=== PATIENT | male | born 1955 | race Caucasian/White ===

== ENCOUNTER 2021-05-04 19:44 | Emergency (ER) | payer MEDICARE, SELFPAY ==
--- NOTE | ~2021-05-04 | XR_ITS ---
EXAMINATION: XR finger 2nd RT min 2V DATE: 05/04/2021 22:10 INDICATION: Right hand second digit laceration. TECHNIQUE: 3 views of right hand second digit were obtained. COMPARISON: None. FINDINGS: Bone alignment is normal. No fracture. There is mild osteoarthritis of second distal interp halangeal joint. No radiopaque foreign body. IMPRESSION: 1. 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 Reviewed, dictated and finalized at location A. ITY BILL COLLECTION CLERK
[2021-05-04 20:52] VITALS: BP 169/57; PULSE 60; RESP 18; TEMP 36.2; O2SAT 98
[2021-05-04] MEDS: LIDOCAINE HCL 2% PF INJ 5 ML VIAL 1.5 ML INFILTRATE (21:36)
[2021-05-04] MEDS: ACETAMINOPHEN 325 MG TABLET 650 MG PO (21:36)
[2021-05-04] MEDS: TETANUS,DIPHTHERIA,AC PERTUSSIS ADULT 0.5 ML (ADACEL) IM (21:56)
[2021-05-04] MEDS: NEOMYCIN/POLYMYXIN/BACITRACIN OINTMENT PACKET 1 PACKET (21:58)
--- NOTE | 2021-05-04 21:58 | ED.WOUNDLAC ---
HPI - Wound/Laceration General Chief Complaint: Wound/Laceration Stated Complaint: cut finger w/sicer Time Seen by Provider: 05/04/21 19:46 Source: patient and RN notes reviewed Mode of arrival: ambulatory Limitations: no limitations History of Present Illness Onset (ago): hour(s) (1) Extremity Location: Right: wrist Treatments prior to arrival: bandage Related Data Home Medications Medication Instructions Recorded Confirmed albuterol sulfate 2.5 mg CONTINUOUS NEBULIZATION BID 05/04/21 05/04/21 atorvastatin 80 mg PO DAILY 05/04/21 05/04/21 fenofibric acid (choline) 135 mg PO BID 05/04/21 05/04/21 gabapentin 300 mg PO DAILY 05/04/21 05/04/21 metoprolol tartrate 25 mg PO DAILY 05/04/21 05/04/21 nitroglycerin 0.4 mg SUBLINGUAL PRN PRN 05/04/21 05/04/21 ropinirole 1 mg PO BID 05/04/21 05/04/21 sertraline 100 mg PO DAILY 05/04/21 05/04/21 tramadol 50 mg PO HS 05/04/21 05/04/21 trazodone 100 mg PO HS 05/04/21 05/04/21 Allergies Allergy/AdvReac Type Severity Reaction Status Date / Time No Known Allergies Allergy Verified 05/04/21 20:49 Review of Systems Review of Systems: All systems reviewed & are unremarkable except as noted in HPI and below Musculoskeletal: Comments: right index finger laceration PMFSH Past Medical History Medical History Finger laceration Exam Const: General: no acute distress and alert Nutritional Appearance: well nourished Orientation/consciousness: patient oriented x3 Limitations: no limitations HENMT: Head: normal to inspection and laceration Ears: external ears normal and TM's normal bilaterally General nose exam: Normal external nose present and Normal nares present Mouth: Yes moist mucous membranes Eyes: Conjunctivae: conjunctivae normal Pupils: Equal, round and reactive pupils present EOM: EOMs intact bilaterally Neck: Neck: normal visual inspection Chest: Chest palpation & inspection: normal inspection of the chest Resp: Effort & Inspection: normal respiratory effort Auscultation: clear to auscultation bilaterally Cardio: Rate: regular rate Rhythm: regular rhythm GI: GI Palp: Yes Soft to palpation and No Tenderness to palpation present (GI) Back/Spine/Pelvis: Back: no CVA tenderness Skin: General skin exam: normal color Neuro: General: patient oriented x3, moves all extremities, no meningeal signs, no focal motor deficits and CN's II-XI intact bilaterally Extrem: General: normal to inspection and no pedal edema Other: 3 cm linear superficial laceration of lateral right index finger Psych: Mental Status: mental status grossly normal Affect: normal affect Attitude: cooperative Thought content: Yes Normal thought content present Course Course Emergency Course: Finger laceration was repaired. Reevaluation(s) Date: 05/04/21 Vital Signs Vital signs: Vital Signs Temperature 36.2 C L 05/04/21 20:52 Pulse Rate 60 05/04/21 20:52 Respiratory Rate 18 05/04/21 20:52 Blood Pressure 169/57 H 05/04/21 20:52 Pulse Oximetry 98 05/04/21 20:52 Temperature 36.2 C L 05/04/21 20:52 Pulse Rate 60 05/04/21 20:52 Respiratory Rate 18 05/04/21 20:52 Blood Pressure 169/57 H 05/04/21 20:52 Pulse Oximetry 98 05/04/21 20:52 MDM - Wound/Laceration Differential Diagnosis Differential diagnosis: Likely laceration Medical Records Attestation: I reviewed the patient's medical records. Imaging Data My impression: negative right index finger. Radiologist's impression: See the report. Critical Care Time Critical Care Time Critical Care Time: No Total Critical Care Time: 0 Discharge Plan Discharge Clinical Impression: Laceration Patient Disposition: Home, Self-Care Condition: Stable Instructions: Antibiotic Form, Care For Your Stitches (ED), Laceration (ED) Additional Instructions: Home. May RTC prn. PMD in 1-2 days. Rx below. Prescriptions: New amoxicillin 875 mg
[2021-05-04 22:26] VITALS: BP 140/75; PULSE 65; RESP 18; TEMP 36.6; O2SAT 99
== END 2021-05-04 22:32 | disposition home or self-care (01) ==
PROVIDERS: Emergency Provider Emergency Medicine; PCP Physician Assistant
DX: S61.210A Laceration without foreign body of right index finger without damage to nail, initial encounter (principal); W45.8XXA Other foreign body or object entering through skin, initial encounter
CPT/HCPCS: 12002; 73140; 90471; 90715; 99283; A9270

== ENCOUNTER 2023-06-12 22:18 | Emergency (ER) | payer MEDICARE, SELFPAY ==
[2023-06-12 22:21] VITALS: BP 182/64; PULSE 60; RESP 20; TEMP 36.7; O2SAT 97
[2023-06-12] MEDS: ACYCLOVIR 200 MG CAPSULE 400 MG PO ×2 (22:32)
[2023-06-12] MEDS: KETOROLAC 30 MG/ML VIAL (*BKC) IM (22:33)
--- NOTE | 2023-06-12 22:43 | ED.SKABFB ---
HPI - Skin/Abscess/Foreign Bdy General Chief complaint: Skin/Abscess/Foreign Body Stated complaint: Rash on upper R chest Time Seen by Provider: 06/12/23 22:22 Source: patient Mode of arrival: ambulatory Limitations: no limitations History of Present Illness HPI narrative: this is 68-year-old male that presents with a rash vesicular his pain for with on an erythematous base with no fever chills no shortness of breath no nausea or vomiting no abdominal pain. complaint: rash Onset (ago): day(s) Severity: moderate Quality: burning Related Data Home Medications Medication Instructions Recorded Confirmed albuterol sulfate 2.5 mg/0.5 mL 2.5 mg continuous nebulization BID 05/04/21 05/04/21 solution for nebulization atorvastatin 80 mg tablet 80 mg PO DAILY 05/04/21 05/04/21 fenofibric acid (choline) 135 mg 135 mg PO BID 05/04/21 05/04/21 capsule,delayed release gabapentin 300 mg capsule 300 mg PO DAILY 05/04/21 05/04/21 metoprolol tartrate 25 mg tablet 25 mg PO DAILY 05/04/21 05/04/21 nitroglycerin 0.4 mg sublingual 0.4 mg sublingual PRN PRN Chest 05/04/21 05/04/21 tablet Pain ropinirole 1 mg tablet 1 mg PO BID 05/04/21 05/04/21 sertraline 100 mg tablet 100 mg PO DAILY 05/04/21 05/04/21 tramadol 50 mg tablet 50 mg PO HS 05/04/21 05/04/21 trazodone 100 mg tablet 100 mg PO HS 05/04/21 05/04/21 Allergies Allergy/AdvReac Type Severity Reaction Status Date / Time No Known Allergies Allergy Verified 05/04/21 20:49 Review of Systems Review of Systems: All systems reviewed & are unremarkable except as noted in HPI and below PMFSH Past Medical History Medical History Finger laceration Exam Const: General: healthy appearing and no acute distress Limitations: no limitations HENMT: Head: normal to inspection Chest: Chest palpation & inspection: normal inspection of the chest and tenderness Other: Rash vesicles on erythematous base 0 patch on the right upper chest area Resp: Effort & Inspection: normal respiratory effort Auscultation: clear to auscultation bilaterally GI: Auscultation: normal bowel sounds Skin: Wounds: wounds noted Course Course Emergency Course: patient received a p.o. dose of 800mg acyclovir and 30mg IM of Toradol. Vital Signs Vital signs: Vital Signs Temperature 36.7 C 06/12/23 22:21 Pulse Rate 60 06/12/23 22:21 Respiratory Rate 20 06/12/23 22:21 Blood Pressure 182/64 H 06/12/23 22:21 Pulse Oximetry 97 06/12/23 22:21 Oxygen Delivery Room Air 06/12/23 22:21 Temperature 36.7 C 06/12/23 22:21 Pulse Rate 60 06/12/23 22:21 Respiratory Rate 20 06/12/23 22:21 Blood Pressure 182/64 H 06/12/23 22:21 Pulse Oximetry 97 06/12/23 22:21 Oxygen Delivery Room Air 06/12/23 22:21 Critical Care Time Critical Care Time Critical Care Time: No Discharge Plan Discharge Clinical Impression: Herpes zoster Patient Disposition: Home, Self-Care Condition: Stable Instructions: Antibiotic Form, Shingles (ED) Additional Instructions: Take medicine as prescribed and follow up with primary if symptoms persist or worsen. Can take Tylenol or Motrin along with prescribed medication for shingles Prescriptions: New acyclovir 800 mg tablet 800 mg PO QID 7 Days Qty: 28 0RF No Action atorvastatin 80 mg tablet 80 mg PO DAILY ropinirole 1 mg tablet 1 mg PO BID sertraline 100 mg tablet 100 mg PO DAILY tramadol 50 mg tablet 50 mg PO HS trazodone 100 mg tablet 100 mg PO HS nitroglycerin 0.4 mg tablet, sublingual 0.4 mg sublingual PRN PRN (Reason: Chest Pain) gabapentin 300 mg capsule 300 mg PO DAILY metoprolol tartrate 25 mg tablet 25 mg PO DAILY albuterol sulfate 2.5 mg/0.5 mL solution for nebulization 2.5 mg continuous nebulization BID fenofibric acid (choline) 135 mg capsule,delayed release(DR/EC) 1
[2023-06-12 22:54] VITALS: BP 140/74; PULSE 89; RESP 18; TEMP 36.6; O2SAT 99
== END 2023-06-12 22:54 | disposition home or self-care (01) ==
PROVIDERS: Emergency Provider Emergency Medicine; PCP Family Medicine
DX: B02.9 Zoster without complications (principal)
CPT/HCPCS: 96372; 99283; A9270; J1885

== ENCOUNTER 2025-02-10 19:45 | Emergency (ER) | payer MEDICARE, MEDICAID, SELFPAY ==
[2025-02-10 19:46] VITALS: BP 175/89; PULSE 73; RESP 16; TEMP 36; O2SAT 95
--- OUTSIDE RECORDS SUMMARY | 2025-02-10 19:46 | XMS_ITS | Clinical Summary ---
Author Organization [facility] Address [address] [place] [address] Care Team Providers Care Emergency Detail Driver Name Role Phone Jt Romeo Primary Care Provider [phone] Allergies No known active allergies Medications aspirin 81 MG tablet Take 81 mg by mouth daily. 7 Active nitroglycerin 0.4 MG SL tablet 0.4 mg. 1 Active Chlorphen-Pyril -Phenyleph (TRIPLEX AD OR) Take 1 tablet by mouth daily. 2 Active atorvastatin (LIPITOR) 40 MG tablet Take 2 tablets by mouth daily. 1 Active fluticasone-tushar meterol (ADVAIR DISKUS) 500-50 MCG/DOSE inhaler 1 puff 2 (two) times daily. 8 Active primidone 50 MG tablet Take 25 mg by mouth daily. 8 Active sertraline 100 MG tablet Take 100 mg by mouth daily. 8 Active trazodone 100 MG tablet Take 10 mg by mouth daily. 8 Active ferrous sulfate, 65 mg elemental, 325 (65 Fe) MG tablet Take 1 tablet by mouth daily. Active albuterol (5 MG/ML) 0.5% nebulizer solution Take 2.5 mg by nebulization 4 (four) times daily. Active ipratropium-alb uterol 0.5-2.5 (3) MG/3ML Solution Take by nebulization every 6 (six) hours as needed. Active tiotropium [address] 18 mcg into inhaler and inhale daily. Active Family History Medical History Relation Comments Heart Disease Father Relation Status Comments Father Social History Tobacco Use Types Packs/Day Years Used Date Smoking Tobacco: Smoker, Current Status Unknown Smokeless Tobacco: Never Sex and Gender Information Value Date Recorded Sex Assigned at Not on file Legal Sex Male 9:59 PM CDT Gender Identity Not on file Sexual Orientation Not on file Last Filed Vital Signs Vital Sign Reading Time Taken Comments Blood Pressure 158/77 02/21/2018 11:44 AM BOOTH CLEANER Pulse 51 02/21/2018 11:44 AM BOOTH CLEANER Temperature 36.5 C (97.7 F) 02/21/2018 11:44 AM BOOTH CLEANER Respiratory Rate 16 12/23/2011 4:09 PM CDT Oxygen Saturation 97% 02/21/2018 11:44 AM BOOTH CLEANER Inhaled Oxygen Concentration - - Weight 79.8 kg (176 lb) 02/21/2018 11:44 AM BOOTH CLEANER Height 182.9 cm (6') 02/21/2018 11:44 AM BOOTH CLEANER Body Mass Index 23.87 02/21/2018 11:44 AM BOOTH CLEANER Plan of Treatment Health Maintenance Due Date Last Done Comments Colorectal Cancer Screening Colonoscopy (10 Years) 1953 Hepatitis C 1971 DTaP, Tdap and Td Vaccines ( 1 - Tdap) 1972 Pneumococcal Vaccine: 50+ Ye ars (1 of 2 - PCV) 1972 Zoster Vaccines (1 of 2) 2003 Annual Medicare Wellness Visit 2018 COVID-19 Vaccine ( - 2024-2 6 season) 2024 Influenza Adult (#1) 2025 RSV Immunization or 60+ Years (1 - 1-dose 75+ series) 2028 Hepatitis A Vaccines Aged Out No long er eligible based on patient's age to complete this topic Meningococcal B Vaccine Aged Out No l onger eligible based on patient's age to complete this topic Meningococcal Vaccine Aged Out No gino jonas eligible based on patient's age to complete this topic RSV Immunizations Under 20 Months Aged Out No longer eligible based on patient's age to complete this topic Insurance MEDICAID AETNA MEDICARE Care Teams Emergency Detail Driver Relationship Specialty Start Date End Date Jt Romeo PA [address] [place] [phone] PCP - General PHYSICIAN TOUR BUS DRIVER/GUIDE 02/18/18
--- OUTSIDE RECORDS SUMMARY | 2025-02-10 19:46 | XMS_ITS | Encounter Summary ---
Author Organization [facility] Address [address] [place] [address] Care Team Providers Care Restaurant Managing Partner Name Role Phone Jt Romeo Primary Care Provider [phone] Encounter Details Date Type Department Care Team (Late st Contact Info) Description 03/10/[address] [facility] [address] [facility] [place] [address] Den Fernandes MD Social History Tobacco Use Types Packs/Day Years Used Date Smoking Tobacco: Smoker, Current Status Unknown Smokeless Tobacco: Never Sex and Gender Information Value Date Recorded Sex Assigned at Not on file Legal Sex Male 9:59 PM CDT Gender Identity Not on file Sexual Orientation Not on file documented as of this encounter Plan of Treatment Not on file documented as of this encounter Visit Diagnoses Not on filedocumented in this encounter Care Teams Restaurant Managing Partner Relationship Specialty Start Date End Date Jt Romeo PA [address] [place] [phone] PCP - General PHYSICIAN SUPERINTENDENT CIRCUS 02/18/18 documented as of this encounter
--- NOTE | 2025-02-10 19:49 | ED.EAR ---
HPI - Ear Problem General Chief complaint: Ear Stated complaint: ear problem Time Seen by Provider: 02/10/25 19:47 Source: patient Mode of arrival: ambulatory Limitations: no limitations History of Present Illness HPI Narrative: This is a 69-year-old male that has been having ear irritation for the last couple of months in his primary care physician had him use some oils but currently is having some redness and swelling in bilateral ear canals, with no drainage no fever chills patient does have a history of COPD. Is in no sinus congestion no nausea vomiting. MD Complaint: ear pain and ear discharge Location: bilateral Duration: constant Severity: moderate Related Data Home Medications ?Medication ?Instructions ?Recorded ?Confirmed ?Last Taken ?Type albuterol sulfate 2.5 mg/0.5 mL 2.5 mg continuous nebulization BID 05/04/21 05/04/21 Unknown History solution for nebulization atorvastatin 80 mg tablet 80 mg PO DAILY 05/04/21 05/04/21 Unknown History fenofibric acid (choline) 135 mg 135 mg PO BID 05/04/21 05/04/21 Unknown History capsule,delayed release gabapentin 300 mg capsule 300 mg PO DAILY 05/04/21 05/04/21 Unknown History metoprolol tartrate 25 mg tablet 25 mg PO DAILY 05/04/21 05/04/21 Unknown History nitroglycerin 0.4 mg sublingual 0.4 mg sublingual PRN PRN Chest 05/04/21 05/04/21 Unknown History tablet Pain ropinirole 1 mg tablet 1 mg PO BID 05/04/21 05/04/21 Unknown History sertraline 100 mg tablet 100 mg PO DAILY 05/04/21 05/04/21 Unknown History tramadol 50 mg tablet 50 mg PO HS 05/04/21 05/04/21 Unknown History trazodone 100 mg tablet 100 mg PO HS 05/04/21 05/04/21 Unknown History Allergies Allergy/AdvReac Type Severity Reaction Status Date / Time No Known Allergies Allergy Verified 02/10/25 19:50 Review of Systems Review of Systems: All systems reviewed & are unremarkable except as noted in HPI and below PMFSH Past Medical History Medical History Finger laceration Exam Const: General: no acute distress Nutritional Appearance: well nourished Orientation/consciousness: patient oriented x3 HENMT: Other: Bilateral ear canals with erythema swelling currently no drainage Neck: Neck: normal visual inspection and no lymphadenopathy Chest: Chest palpation & inspection: normal inspection of the chest Resp: Effort & Inspection: normal respiratory effort Auscultation: clear to auscultation bilaterally Cardio: Rate: regular rate Rhythm: regular rhythm Course Course Emergency Course: Medical decision making narrative: The patient was evaluated by myself in the emergency department. History obtained from patient who is an independent historian and physical exam performed and witnessed by nurse. Patient received antibiotic eardrops balance for bilateral ear canal infection. Repeat assessment: Patient doing well on repeat exam no acute distress. Symptoms are stable since arrival to the emergency department Repeat vitals stable Patient agrees with discussion after shared medical decision-making and agrees with discharge All questions answered to patient's satisfaction. Vital Signs Vital signs: Vital Signs Temperature 36.0 C L 02/10/25 19:46 Pulse Rate 73 02/10/25 19:46 Respiratory Rate 16 02/10/25 19:46 Blood Pressure 175/89 H 02/10/25 19:46 Pulse Oximetry 95 02/10/25 19:46 Oxygen Delivery Room Air 02/10/25 19:46 Temperature 36.0 C L 02/10/25 19:46 Pulse Rate 73 02/10/25 19:46 Respiratory Rate 16 02/10/25 19:46 Blood Pressure 175/89 H 02/10/25 19:46 Pulse Oximetry 95 02/10/25 19:46 Oxygen Delivery Room Air 02/10/25 19:46 Medical Decision Making Vital Signs Vital Signs: Vital Signs Temperature 36.0 C L 02/10/25 19:46 Pulse Rate 73 02/10/25 19:46 Respiratory Rate 16 02/10/25 19:46 Blood Pressure 175/89 H 02/10/25 19:46 Pulse Oximetry 95 02/10/25 19:46 Oxygen Delivery Room Air 02/10/25 19:46 Temperature 36.0 C L 02/10/25 19:46 Pulse Rate 73 02/10/25 19:46 Respiratory Rate 16 02/10/25 19:46 Blood Pressure 175/89 H 02/10/25 19:46 Pulse Oximetry 95 02/10/25 19:46 Oxygen Delivery Room Air 02/10/25 19:46 Critical Care Time Critical Care Time Critical Care Time: No Discharge Plan Discharge Clinical Impression: Otitis externa Qualifiers: Otitis externa type: unspecified type Chronicity: acute Laterality: bilateral Qualified Code(s): H60.503 - Unspecified acute noninfective otitis externa, bilateral Patient Disposition: Home Condition: Stable Instructions: Antibiotic Form, Ear Infection (ED) Additional Instructions: Advised patient to take medication as prescribed and follow with primary within the next week for further evaluation and treatment. Patient Language: Upper Sorbian Prescriptions: New Cortisporin-TC 3.3-3-10-0.5 mg/mL drops,suspension 4 drp EACH EAR QID 7 Days Qty: 10 0RF No Action atorvastatin 80 mg tablet 80 mg PO DAILY ropinirole 1 mg tablet 1 mg PO BID sertraline 100 mg tablet 100 mg PO DAILY tramadol 50 mg tablet 50 mg PO HS trazodone 100 mg tablet 100 mg PO HS nitroglycerin 0.4 mg tablet, sublingual 0.4 mg sublingual PRN PRN (Reason: Chest Pain) gabapentin 300 mg capsule 300 mg PO DAILY metoprolol tartrate 25 mg tablet 25 mg PO DAILY albuterol sulfate 2.5 mg/0.5 mL solution for nebulization 2.5 mg continuous nebulization BID fenofibric acid (choline) 135 mg capsule,delayed release(DR/EC) 135 mg PO BID amoxicillin 875 mg tablet 875 mg PO Q12H Qty: 20 0RF acyclovir 800 mg tablet 800 mg PO QID 7 Days Qty: 28 0RF Follow-up/Referrals: Daniela,MD Riley [Primary Care Provider, Family Practice] Time of Disposition: 19:54
[2025-02-10] MEDS: NEOMYCIN/POLYMYXIN/HYDROCORT OT SUSP 10 ML BTL (*BKC) 3 DROP EACH EAR (20:00)
--- OUTSIDE RECORDS SUMMARY | 2025-02-10 20:10 | XMS_ITS | Encounter Summary ---
Author Organization [facility] Address [address] [place] [address] Care Team Providers Care Planing Machine Operator Name Role Phone Jt Romeo Primary Care Provider [phone] Encounter Details Date Type Department Care Team (Late st Contact Info) Description 03/10/[address] [facility] [address] [facility] [place] [address] Den Fernandes MD Social History Tobacco Use [...] on filedocumented in this encounter Care Teams Planing Machine Operator Relationship Specialty Start Date End Date Jt Romeo PA [address] [place] [phone] PCP - General PHYSICIAN UNIX ANALYST 02/18/18 documented as of this encounter
== END 2025-02-10 20:17 | disposition home or self-care (01) ==
LOC: CHSED 20:08
PROVIDERS: Emergency Provider Emergency Medicine; PCP Family Medicine
DX: H60.503 Unspecified acute noninfective otitis externa, bilateral (principal)
CPT/HCPCS: 99283; A9270